=== PATIENT | female | born 1965 | race Caucasian/White ===

== ENCOUNTER 2016-12-13 10:36 | Emergency (ER) | payer BC ==
[~2016-12-13] VITALS: Ht 162.6 cm; Wt 104.1 kg
[~2016-12-13 10:36] MED LIST: CEPHALEXIN500 M1 PO; NO HOME MEDICATIONS; PERCOCET 325 MG1 TA2 PO; PERCOCET 500 MG1 TAB PO; ULTRAM 50MG TAB50 MG PO; VENLAFAXINE37.5 MG PO
[2016-12-13 10:38] VITALS: BP 176/108; PULSE 94; TEMP 99
[2016-12-13] MEDS ORDERED: DOXYCYCLINE 10100 MG PO (11:18)
[2016-12-13] MEDS ORDERED: PREDNISONE20 MG PO (11:18)
== END 2016-12-13 11:47 | disposition home or self-care (01) ==
LOC: COL.ER 10:36
DX: L03.114 Cellulitis of left upper limb (principal); R21 Rash and other nonspecific skin eruption; R20.2 Paresthesia of skin; L29.9 Pruritus, unspecified
CPT/HCPCS: J7512

== ENCOUNTER → 2017-08-31 | Outpatient (CLI) | payer BC ==
[~2017-08-31] MED LIST changes: +DOXYCYCLINE 10100 MG PO; +PREDNISONE20 MG PO
== END ==
LOC: MC.RAD 07:52
DX: Z12.31 Encounter for screening mammogram for malignant neoplasm of breast (principal)

== ENCOUNTER → 2018-09-29 | Outpatient (CLI) | payer BC | LOC: MC.RAD 14:03 | DX: Z12.31 Encounter for screening mammogram for malignant neoplasm of breast (principal) ==

== ENCOUNTER 2019-07-09 09:01 | Emergency (ER) | payer SELFPAY ==
[~2019-07-09] VITALS: Ht 160 cm; Wt 95.5 kg
[2019-07-09 09:09] VITALS: TEMP 97.7
[2019-07-09] MEDS ORDERED: IBU800 M1 PO (09:59)
[2019-07-09] MEDS ORDERED: FLEXERIL 1010 MG/TAB PO (09:59)
[2019-07-09] MEDS ORDERED: LIDODERM 5% PATC1 EA TP (09:59)
[2019-07-09 10:13] VITALS: BP 138/98; PULSE 86
== END 2019-07-09 10:20 | disposition home or self-care (01) ==
LOC: COL.ER 09:01
DX: S39.012A Strain of muscle, fascia and tendon of lower back, initial encounter (principal); S80.12XA Contusion of left lower leg, initial encounter; Z88.0 Allergy status to penicillin; F17.210 Nicotine dependence, cigarettes, uncomplicated; W20.8XXA Other cause of strike by thrown, projected or falling object, initial encounter; Y92.59 Other trade areas as the place of occurrence of the external cause

== ENCOUNTER 2019-07-19 12:50 | Outpatient (RCR) | payer OTHER ==
[~2019-07-19 12:50] MED LIST changes: +FLEXERIL 1010 MG/TAB PO; +IBU800 M1 PO; +LIDODERM 5% PATC1 EA TP
== END 2019-10-09 | disposition home or self-care (01) ==
LOC: WSOH
DX: S39.012A Strain of muscle, fascia and tendon of lower back, initial encounter (principal); S80.12XA Contusion of left lower leg, initial encounter; F17.210 Nicotine dependence, cigarettes, uncomplicated; I10 Essential (primary) hypertension; Z90.710 Acquired absence of both cervix and uterus; Y99.0 Civilian activity done for income or pay

== ENCOUNTER → 2020-10-10 | Outpatient (CLI) | payer BC ==
[~2020-10-10] MED LIST changes: +B COMPLEX #11 TA1 PO; +COLLAGEN PLUS PO; +COZAAR100 MG PO; +MOTRIN 600600 MG/TAB PO; +NORCO 325 MG-51 TAB PO; +OMEGA-3 1000 MG1 CAP PO; +PRILOSEC 20MG20 MG PO
== END ==
LOC: MC.RAD 07:00
DX: Z12.31 Encounter for screening mammogram for malignant neoplasm of breast (principal)

== ENCOUNTER 2020-11-01 10:16 | Day surgery (SDC) | payer BC ==
[~2020-11-01] VITALS: Ht 160 cm; Wt 107.6 kg
[~2020-11-01 10:16] MED LIST changes: -B COMPLEX #11 TA1 PO; -COLLAGEN PLUS PO; -COZAAR100 MG PO; -MOTRIN 600600 MG/TAB PO; -NORCO 325 MG-51 TAB PO; -OMEGA-3 1000 MG1 CAP PO; -PRILOSEC 20MG20 MG PO
[2020-11-01 11:17] VITALS: BP 159/99; PULSE 85; TEMP 98.3
[2020-11-01] MEDS ORDERED: FLEXERIL 1010 MG/TAB PO (11:24)
[2020-11-01] MEDS ORDERED: COZAAR100 MG PO (11:25)
[2020-11-01] MEDS ORDERED: PRILOSEC 20MG20 MG PO (11:25)
--- NOTE | 2020-11-01 11:28 | NUR ---
TO RM 6 AT 1050- CALL LIGHT IN REACH DAUGHTER AT BEDSIDE
[2020-11-01] MEDS ORDERED: MOTRIN 600600 MG/TAB PO (14:19)
[2020-11-01] MEDS ORDERED: NORCO 325 MG-51 TAB PO (14:19)
[2020-11-01 14:45] VITALS: BP 139/89; PULSE 64; TEMP 97.4
--- NOTE | 2020-11-01 14:45 | NUR ---
TO RM 6 PER CART FROM PACU. ALERT ORIENTED X3, TALKING TO STAFF AND DAUGHTER. EATING ICE CHIPS C/O PAIN 08/28 AND DENIES NEED FOR PAIN MEDICATION.
[2020-11-01 15:00] VITALS: BP 143/89; PULSE 63
--- NOTE | 2020-11-01 15:00 | NUR ---
RECEIVED SPRITE AND CRACKERS.
[2020-11-01 15:15] VITALS: BP 140/79; PULSE 68
--- NOTE | 2020-11-01 15:15 | NUR ---
ATE 100% AND TOLERATED WELL. CONTINUES TO DENY INCREASE OF PAIN
[2020-11-01 15:30] VITALS: BP 181/90; PULSE 56
--- NOTE | 2020-11-01 15:30 | NUR ---
AMBULATED TO BATHROOM. VOIDED AND AND TOLERATED WELL
--- NOTE | 2020-11-01 15:45 | NUR ---
RECEIVED DISCHARGE INSTRUCTIONS AND VERBALIZED UNDERSTANDING. DISCONTINUED IV AND INT- CATHETER INTACT. PATIENT GETTING DRESSED.
--- NOTE | 2020-11-01 15:55 | NUR ---
DISCHARGED PER WC BY NURSING STAFF TO PRIVATE CAR IN CARE OF DAUGHTER KUMAR.
== END 2020-11-01 16:27 | disposition home or self-care (01) ==
LOC: SDCO 10:16
DX: K80.10 Calculus of gallbladder with chronic cholecystitis without obstruction (principal); I10 Essential (primary) hypertension; K21.9 Gastro-esophageal reflux disease without esophagitis; F17.210 Nicotine dependence, cigarettes, uncomplicated; Z90.710 Acquired absence of both cervix and uterus; Z20.822 Contact with and (suspected) exposure to COVID-19; Z79.899 Other long term (current) drug therapy; Z88.0 Allergy status to penicillin; E78.5 Hyperlipidemia, unspecified; E66.2 Morbid (severe) obesity with alveolar hypoventilation; Z88.8 Allergy status to other drugs, medicaments and biological substances; Z83.3 Family history of diabetes mellitus
CPT/HCPCS: J0690; J1100; J1885; J2405; J2704; J3010; J7120

== ENCOUNTER 2021-04-04 07:07 | Day surgery (SDC) | payer BC ==
[~2021-04-04] VITALS: Ht 165.1 cm; Wt 107.9 kg
[~2021-04-04 07:07] MED LIST changes: +COZAAR100 MG PO; +MOTRIN 600600 MG/TAB PO; +NORCO 325 MG-51 TAB PO; +PRILOSEC 20MG20 MG PO
[2021-04-04] MEDS ORDERED: OMEGA-3 1000 MG1 CAP PO (07:31)
[2021-04-04] MEDS ORDERED: COLLAGEN PLUS PO (07:31)
[2021-04-04] MEDS ORDERED: B COMPLEX #11 TA1 PO (07:32)
[2021-04-04 08:03] VITALS: BP 149/103; PULSE 84
[2021-04-04 08:35] VITALS: BP 131/92; PULSE 75; TEMP 97.7
--- NOTE | 2021-04-04 08:35 | NUR ---
The patient arrived back to [facility] from the endoscopy suite at this time. The patient ambulated from the cart to the recliner in her room with the stand by assistance of two nurses and appeared to tolerate the activity well. Vital signs were started at this time. The patient agrees to try some sprite and aung crackers at this time. The patient's friend, Mere, is at her bedside at this time. Call light is within reach. Will continue to monitor the patient.
[2021-04-04 08:50] VITALS: BP 133/94; PULSE 70
--- NOTE | 2021-04-04 08:50 | NUR ---
The patient has finished her food and drink and has spoke to Dr. Castle regarding the findings of her procedure. The patient voices a desire to be discharged home. Discharge instructions were reviewed with the patient and her friend at this time. They both verbalized understanding and have no questions for the nurse at this time. The patient's IV to her right hand was removed and a pressure dressing was applied to the site. The nurse instructed the patient to get dressed and notify the staff when she is ready to be escorted out.
--- NOTE | 2021-04-04 09:07 | NUR ---
The patient was escorted out via wheelchair to a private vehicle by JOSÉ Bansal. The patient's belongings and discharge paperwork were sent with her. The patient's friend, Mere, is present to drive her home.
== END 2021-04-04 09:07 | disposition home or self-care (01) ==
LOC: SDCO 07:07
DX: Z12.11 Encounter for screening for malignant neoplasm of colon (principal); I10 Essential (primary) hypertension; K21.9 Gastro-esophageal reflux disease without esophagitis; K64.0 First degree hemorrhoids; D12.3 Benign neoplasm of transverse colon; F17.210 Nicotine dependence, cigarettes, uncomplicated; Z20.822 Contact with and (suspected) exposure to COVID-19; Z79.899 Other long term (current) drug therapy; Z90.710 Acquired absence of both cervix and uterus
CPT/HCPCS: J2704; J3010; J7030

== ENCOUNTER → 2022-10-15 | Outpatient (CLI) | payer OTHER ==
[~2022-10-15] MED LIST changes: +B COMPLEX #11 TA1 PO; +COLLAGEN PLUS PO; +OMEGA-3 1000 MG1 CAP PO
== END ==
LOC: MC.RAD 07:08
DX: Z12.31 Encounter for screening mammogram for malignant neoplasm of breast (principal)